=== PATIENT | female | born 1965 | race Caucasian/White ===

== ENCOUNTER 2017-11-27 11:45 | Emergency (ER) | payer OTHER ==
[~2017-11-27] VITALS: Ht 152.4 cm; Wt 46.3 kg
[~2017-11-27 11:45] MED LIST: NEURONTIN300 MG; Neurin-Sl Tablet Sl SL; Neurontin PO; SERTRALINE HCL25 MG PO; SUCRALFATE1 GM/10 ML PO; TRAM1TAB98 PO; ZOLOFT25 MG
[2017-11-27] MEDS ORDERED: MEDROLPACK PO (13:26)
[2017-11-27] MEDS ORDERED: TUSSIONEX PENN115 ML PO (13:26)
== END 2017-11-27 16:10 | disposition home or self-care (01) ==
LOC: ER 11:45
DX: M79.1 Myalgia (principal); C79.51 Secondary malignant neoplasm of bone

== ENCOUNTER → 2018-02-15 | Outpatient (CLI) | payer OTHER ==
[~2018-02-15] MED LIST changes: +MEDROLPACK PO; +TUSSIONEX PENN115 ML PO
== END | disposition home or self-care (01) ==
LOC: TOM 13:34
DX: C50.812 Malignant neoplasm of overlapping sites of left female breast (principal); C79.81 Secondary malignant neoplasm of breast; D64.81 Anemia due to antineoplastic chemotherapy; D70.1 Agranulocytosis secondary to cancer chemotherapy; D61.810 Antineoplastic chemotherapy induced pancytopenia; Z17.0 Estrogen receptor positive status [ER+]; T45.1X5A Adverse effect of antineoplastic and immunosuppressive drugs, initial encounter; D51.3 Other dietary vitamin B12 deficiency anemia; D50.8 Other iron deficiency anemias; D52.0 Dietary folate deficiency anemia; D70.8 Other neutropenia; Z80.3 Family history of malignant neoplasm of breast; D63.0 Anemia in neoplastic disease; I97.2 Postmastectomy lymphedema syndrome
CPT/HCPCS: 70460; 70491; Q9965

== ENCOUNTER → 2018-08-11 14:21 | Outpatient (CLI) | payer OTHER | END | disposition home or self-care (01) | LOC: LAB 14:21 | DX: C50.812 Malignant neoplasm of overlapping sites of left female breast (principal); C79.81 Secondary malignant neoplasm of breast; D64.81 Anemia due to antineoplastic chemotherapy; D70.1 Agranulocytosis secondary to cancer chemotherapy; D61.810 Antineoplastic chemotherapy induced pancytopenia; Z17.0 Estrogen receptor positive status [ER+]; T43.1X5A Adverse effect of monoamine-oxidase-inhibitor antidepressants, initial encounter; D51.3 Other dietary vitamin B12 deficiency anemia; D50.8 Other iron deficiency anemias; D52.0 Dietary folate deficiency anemia; D70.8 Other neutropenia; Z80.3 Family history of malignant neoplasm of breast; D63.0 Anemia in neoplastic disease; I97.2 Postmastectomy lymphedema syndrome; L03.116 Cellulitis of left lower limb; G62.89 Other specified polyneuropathies; I10 Essential (primary) hypertension; D63.8 Anemia in other chronic diseases classified elsewhere; E03.8 Other specified hypothyroidism ==

== ENCOUNTER 2019-01-27 14:54 | Outpatient (CLI) | payer OTHER | END 2019-01-27 15:00 | disposition HB | LOC: LAB 14:54 | DX: C50.812 Malignant neoplasm of overlapping sites of left female breast (principal); C79.81 Secondary malignant neoplasm of breast; D64.81 Anemia due to antineoplastic chemotherapy; D70.1 Agranulocytosis secondary to cancer chemotherapy; Z17.0 Estrogen receptor positive status [ER+]; T45.1X5A Adverse effect of antineoplastic and immunosuppressive drugs, initial encounter; D51.3 Other dietary vitamin B12 deficiency anemia; D50.8 Other iron deficiency anemias; D52.0 Dietary folate deficiency anemia; D70.8 Other neutropenia; Z80.3 Family history of malignant neoplasm of breast; D63.0 Anemia in neoplastic disease; I97.2 Postmastectomy lymphedema syndrome; L03.116 Cellulitis of left lower limb; G62.89 Other specified polyneuropathies; I10 Essential (primary) hypertension; D63.8 Anemia in other chronic diseases classified elsewhere; E03.8 Other specified hypothyroidism; R97.0 Elevated carcinoembryonic antigen [CEA]; R97.8 Other abnormal tumor markers ==

== ENCOUNTER 2019-02-02 09:41 | Outpatient (CLI) | payer OTHER | END 2019-02-02 10:00 | disposition home or self-care (01) | LOC: TOM 09:41 | DX: C50.812 Malignant neoplasm of overlapping sites of left female breast (principal); C79.81 Secondary malignant neoplasm of breast; D64.81 Anemia due to antineoplastic chemotherapy; D70.1 Agranulocytosis secondary to cancer chemotherapy; D61.810 Antineoplastic chemotherapy induced pancytopenia; Z17.0 Estrogen receptor positive status [ER+]; T45.1X5A Adverse effect of antineoplastic and immunosuppressive drugs, initial encounter; D51.3 Other dietary vitamin B12 deficiency anemia; D50.8 Other iron deficiency anemias; D52.0 Dietary folate deficiency anemia; D70.8 Other neutropenia; Z80.3 Family history of malignant neoplasm of breast; D63.0 Anemia in neoplastic disease; I97.2 Postmastectomy lymphedema syndrome; L03.116 Cellulitis of left lower limb; G62.89 Other specified polyneuropathies; I10 Essential (primary) hypertension; D63.8 Anemia in other chronic diseases classified elsewhere; E03.8 Other specified hypothyroidism | CPT/HCPCS: 71260; Q9965 ==